=== PATIENT | female | born 1970 | race Two or more races ===

== ENCOUNTER → 2021-11-27 | Emergency (ER) | payer OTHER ==
[~2021-11-27] VITALS: Ht 165.1 cm; Wt 54.4 kg
[~2021-11-27] MED LIST: CYCLOBENZAPRINE10 MG PO; KETO10TA2 PO; MELOXICAM7.5 MG PO; NORFLEX100MG PO
== END | disposition home or self-care (01) ==
LOC: ER 14:15
DX: M53.3 Sacrococcygeal disorders, not elsewhere classified (principal); Z88.0 Allergy status to penicillin; Z91.041 Radiographic dye allergy status